=== PATIENT | male | born 1965 | race African-American/Black ===

== ENCOUNTER 2023-06-08 10:37 | Day surgery (SDC) | payer OTHER ==
[~2023-06-08] VITALS: Ht 188 cm; Wt 102.1 kg
[2023-06-08] MEDS ORDERED: diphenhydrAMINE 50 MG/ML VIAL ONE (11:17)
[2023-06-08] MEDS ORDERED: fentaNYL citrate 0.05 MG/ML VIAL ONE (11:17)
[2023-06-08] MEDS ORDERED: LIDOCAINE 2% 100 MG/5 ML UJET TP ONE (11:18)
[2023-06-08] MEDS ORDERED: MIDAZOLAM 2 MG/2 ML VIAL ONE (11:18)
[2023-06-08] MEDS ORDERED: MIDAZOLAM 2 MG/2 ML VIAL IVP ONE (12:55)
[2023-06-08] MEDS ORDERED: diphenhydrAMINE 50 MG/ML VIAL IVP ONE (12:55)
[2023-06-08] MEDS ORDERED: fentaNYL citrate 0.05 MG/ML VIAL IVP ONE (12:55)
== END 2023-06-08 12:36 | disposition home or self-care (01) ==
LOC: MDS 10:37 → MMU 10:39 → MDS 12:36
PROVIDERS: ATTEND Internal Medicine Gastroenterology
DX: Z12.11 Encounter for screening for malignant neoplasm of colon (principal)
CPT/HCPCS: 45378; J1200; J2250; J3010